=== PATIENT | male | born 1950 | race Caucasian/White ===

== ENCOUNTER 2017-12-22 07:47 | Day surgery (SDC) | payer MEDICARE ==
[2017-12-20 07:34] VITALS: BMI 21.8
--- NOTE | 2017-12-22 03:29 | HP ---
REASON FOR ADMISSION: Left heart cath, possible angioplasty, and abnormal stress test. BRIEF CLINICAL HISTORY: This is a 67-year-old male with past medical history of type 2 diabetes, hypertension, hyperlipidemia, complaint of chest pain, and dyspnea on exertion. The patient underwent a stress echo that was abnormal two-third apical ischemia, so the patient is scheduled for elective cardiac cath and possible angioplasty. PAST MEDICAL HISTORY: Significant for diabetes, hypertension, and hyperlipidemia. SOCIAL HISTORY: Denies smoking. Denies any history of alcohol abuse. CURRENT MEDICATIONS: The patient is taking metformin 1 g twice a day, Fosamax 35 mg weekly, glipizide 10 mg daily, enalapril 5 mg daily, Acarbose 25 mg p.o. b.i.d., and ibuprofen 400 mg p.o. t.i.d. RECENT CARDIAC WORKUP: As follows, the patient had an echo dated 11/05/2017, ejection fraction 65%, [id number] mitral regurgitation, mild tricuspid regurgitation noted. The patient underwent a stress echo dated 11/05/2017 that showed anterior two-third suspicious ischemia. REVIEW OF SYSTEMS: As per HPI. PHYSICAL EXAMINATION: GENERAL: As follows, height of the patient 5 feet 10 inches, weight of the patient 152 pounds, and body mass index 21.8 kg/m2. VITAL SIGNS: Heart rate 60 and blood pressure 105/70. HEENT: PERRLA, intact. NECK: Supple. No carotid bruits or thyromegaly. CHEST: Clear to auscultation. HEART: S1 and S2 regular. ABDOMEN: Soft. EXTREMITIES: Clubbing and cyanosis negative. LABORATORY DATA: Blood workup pending. IMPRESSION: A 67-year-old male with past medical history of diabetes, hypertension, hyperlipidemia, complaint of chest pain, and dyspnea on exertion. The patient underwent a stress echo that showed anterior two-third apical ischemia, so the patient is scheduled for elective cardiac catheterization and possible angioplasty. Echo shows [id number] mitral regurgitation, trace tricuspid regurgitation, hypertension, and diabetes. RECOMMENDATIONS: We will review the blood workup when available. Load with aspirin and Plavix. Risks, benefits, and alternatives were explained to the patient. The patient agreed and will proceed for cardiac catheterization. Further recommendations after the cardiac catheterization. We will follow with you. Thank you for providing us the opportunity in taking care of the patient, Murphy Colvin. Jessica Shaffer MD
[2017-12-22 08:19] LABS: BASO # 0.03 K/mm3 (0.0-2.0); BASO % 0.5 % (0.0-3.0); EOS # 0.2 (0.0-0.7); EOS % 3.7 % (1.5-5.0); GRAN # 3.5 (1.4-6.5); GRAN % 59.5 % (50.0-68.0); HEMOGLOBIN 13.8 g/dL (14.0-18.0); LYMPH # 1.7 (1.2-3.4); LYMPH % 29.3 % (22.0-35.0); MEAN CELL VOLUME 89.5 fl (80.0-105.0); MEAN CORPUSCULAR HEMOGLOBIN 30.7 pg (25.0-35.0); MEAN CORPUSCULAR HGB CONC 34.3 g/dl (31.0-37.0); MEAN PLATELET VOLUME 9.8 fl (7.0-11.0); MONO # 0.4 (0.1-0.6); RBC 4.49 10^6/uL (3.5-6.1); RED CELL DISTRIBUTION WIDTH 12.2 % (11.5-14.5); WHITE BLOOD COUNT 5.9 10^3/ul (4.5-11.0)
[2017-12-22 08:36] LABS: BLOOD UREA NITROGEN 25 mg/dL (7-21); CALCIUM 9.3 mg/dL (8.4-10.5); GFR AFRICAN-AMERICAN > 60; GFR NON-AFRICAN AMERICAN > 60
[2017-12-22 08:39] VITALS: O2SAT 99
[2017-12-22 08:42] LABS: INR 0.99 (0.93-1.08); PARTIAL THROMBOPLASTIN TIME 29.6 Seconds (25.1-36.5); PROTHROMBIN TIME 11.4 SECONDS (9.4-12.5)
[2017-12-22] MEDS ORDERED: Lidocaine 2% Inj (20ml) ONE (11:19)
[2017-12-22] MEDS ORDERED: HEPARIN SODIUM/NS 2,000 ML IV ONE (11:20)
[2017-12-22] MEDS ORDERED: Nitroglycerin 50mg in D5W 50 MG/250 ML BOTTLE IV ONE (11:21)
[2017-12-22] MEDS ORDERED: Midazolam 2 MG/2 ML VIAL ONE (11:41)
[2017-12-22] MEDS ORDERED: Phenylephrine 10 mg/ml Inj ONE (12:03)
[2017-12-22] MEDS ORDERED: Iohexol 350mgl/ml 50 ML ONE (12:05)
[2017-12-22] MEDS ORDERED: Eptifibatide 20 mg/10mL Inj IVP ONE (12:06)
[2017-12-22] MEDS ORDERED: Iohexol 350 MG/100 ML VIAL ONE (12:18)
[2017-12-22] MEDS ORDERED: Sodium Chloride 0.9% 1,000 ML IV SCH (13:00)
--- NOTE | 2017-12-22 16:29 | CARD ---
APPROVED REPORT Procedure(s) performed: Left Heart Catheterization PTCA with Stenting of Mid RCA HISTORY The patient is a 67 year-old male with a history of : diabetes mellitus with oral treatment , tobacco history() : The patient is a former smoker , dyslipidemia , Abnormal stress echo. INDICATION The indication(s) include : positive stress test. CASE TECHNIQUE The patient was brought electively to the Cardiac Catheterization Laboratory in a fasting state and was prepped and draped in a sterile manner. The left wrist was infiltrated with 2% Lidocaine subcutaneous anesthesia. A 6FR [employer] Pulse ACCESS KIT sheath was inserted into the left radial artery without difficulty. Coronary angiography was performed using coronary diagnostic catheters. The left coronary system was accessed and visualized with a Diagnostic ,5 Fr JL 4 catheter. The right coronary system was accessed and visualized with a Diagnostic ,5 Fr JR 4 catheter. The left ventricle was accessed and visualized with a Pigtail 5Fr catheter. Left ventricular/Aortic Valve gradient assessed on pullback. Left ventriculogram was performed in SHORT projection. Closure device was deployed with a Fr TR Band (Regular) without any complications. The patient tolerated the procedure well and there were no complications associated with the procedure. Vessel Analysis The patient's coronary anatomy is right dominant. The left main coronary artery is a medium size vessel with diffuse calcification noted throughout this vessel and without significant stenosis. There is a 20% stenosis in the ostial segment. The left main trifurcates to the left anterior descending, circumflex, and ramus. The left anterior descending artery is a medium size vessel with diffuse calcification noted throughout this vessel and without significant stenosis. There is a 60% stenosis in the proximal and Mid segment. Two stenoses The first diagonal branch is a small size vessel with diffuse calcification noted throughout this vessel and without significant stenosis. The circumflex artery is a medium size vessel with diffuse calcification noted throughout this vessel and without significant stenosis. The first obtuse marginal branch is a small size vessel with diffuse calcification noted throughout this vessel and without significant stenosis. The ramus intermedius artery is a large size vessel with diffuse calcification noted throughout this vessel and without significant stenosis. The right coronary artery is a large size vessel with diffuse calcification noted throughout this vessel and without significant stenosis. There is a 80% stenosis in the mid segment. two stenoses The right posterior descending artery is a large size vessel with diffuse calcification noted throughout this vessel and without significant stenosis. The right posterolateral branch is a medium size vessel with diffuse calcification noted throughout this vessel and without significant stenosis. Left Ventricle The left ventricle is normal in size with normal contractility. There was no cardiomyopathy. The left ventricular ejection fraction is estimated to be 65%. The left ventricular end diastolic pressure is 16 mmHg. There was no gradient across the aortic valve upon pullback. PCI Technique Lesion Anticoagulation was achieved with Heparin. Percutaneous coronary intervention was performed on the mid right coronary artery, Two stenoses tendum lesion. The lesion stenosis prior to intervention was 80% with DENNISE 2 flow. A 6 Fr 3DRC Guide Catheter was used to engage the ostium. BALLOON DILATION A Balloon catheter 2.5 x 12 mm Sprinter RX was inserted and inflated up to 8atm for 15seconds. STENT DEPLOYMENT A drug-eluting stent 3.25 x 33 mm Alpine MILLIE was inserted and inflated up to 12.00atm for 15seconds. POST STENT DEPLOYMENT BALLOON DILATION A Balloon catheter 3.5 x 15 mm Trek RX NC was inserted and inflated up to 14.00atm for 15seconds. Final angiography reveals 0 % stenosis with DENNISE 3 flow. Conclusion Single vesserl Critical disease involving Mid RCA two stenoses,80% Moderate Disease in Proximal and MId LAD 60% stenoses. Preserved Lv FX. EF-65%, EDP-16 mmof Hg. Successful PTCA with MILLIE of Mid RCA Recommendations Daily ASA with Plavix for at least one year Aggressive Medical TherapyCardiac Risk Reduction Program F/ U stress test in 6 months to one year to ensure patency of stent and monitor progression of CAD in proximal and Mid LAD. Cc; Virgil Morrell MD
[2017-12-22 16:38] LABS: BASO # 0.02 K/mm3 (0.0-2.0); BASO % 0.3 % (0.0-3.0); EOS # 0.2 (0.0-0.7); EOS % 3.3 % (1.5-5.0); GRAN # 3.46 (1.4-6.5); GRAN % 60.5 % (50.0-68.0); LYMPH # 1.6 (1.2-3.4); LYMPH % 28.4 % (22.0-35.0); MEAN CELL VOLUME 89.1 fl (80.0-105.0); MEAN CORPUSCULAR HEMOGLOBIN 30.5 pg (25.0-35.0); MEAN CORPUSCULAR HGB CONC 34.2 g/dl (31.0-37.0); MEAN PLATELET VOLUME 9.5 fl (7.0-11.0); MONO # 0.4 (0.1-0.6); MONO % 7.5 % (1.0-6.0); RBC 3.77 10^6/uL (3.5-6.1); RED CELL DISTRIBUTION WIDTH 12.2 % (11.5-14.5); WHITE BLOOD COUNT 5.7 10^3/ul (4.5-11.0)
[2017-12-22 16:49] LABS: BLOOD UREA NITROGEN 20 mg/dL (7-21); CALCIUM 8.2 mg/dL (8.4-10.5); GFR AFRICAN-AMERICAN > 60; GFR NON-AFRICAN AMERICAN > 60
[2017-12-22 16:53] LABS: HEMOGLOBIN 11.5 g/dL (14.0-18.0)
[2017-12-22 17:12] VITALS: BP 128/78
[2017-12-22] MEDS ORDERED: Bacitracin 500 Units/gm Oint Foilpak UD ONE (17:26)
--- NOTE | 2017-12-22 17:50 | CARD ---
APPROVED REPORT EKG Measurement Heart [id number] <Conclusion> Normal sinus rhythm Normal ECG
--- NOTE | 2017-12-22 18:04 | CARD ---
APPROVED REPORT EKG Measurement Heart [id number] <Conclusion> Normal sinus rhythm Normal ECG
[2017-12-22 18:13] VITALS: PULSE 67; RESP 20; TEMP 97.6
== END 2017-12-22 18:19 | disposition home or self-care (01) ==
LOC: CATH 07:47 → 2RSO 13:04 → CATH 18:19
PROVIDERS: ATTEND Internal Medicine Cardiovascular Disease
DX: I25.10 Atherosclerotic heart disease of native coronary artery without angina pectoris (principal); E78.5 Hyperlipidemia, unspecified; E11.9 Type 2 diabetes mellitus without complications; Z79.84 Long term (current) use of oral hypoglycemic drugs; Z87.891 Personal history of nicotine dependence; I10 Essential (primary) hypertension
CPT/HCPCS: 36415; 80048; 85025; 85175; 85610; 85730; 86850; 86900; 93005; 93458; 99152; 99153; C1725 ×2; C1769 ×2; C1887 ×4; C9600; J1327; J1644 ×2; J2250; J2370; J3010; J7040 ×2; Q9967 ×3